=== PATIENT | female | born 1980 | race Caucasian/White ===

== ENCOUNTER 2017-04-08 17:16 | Emergency (ER) | payer BC ==
--- NOTE | 2017-04-08 17:29 | PDOC ---
History of Present Illness - General History Source: Patient Exam Limitations: No Limitations - History of Present Illness Initial Comments: 04/08/17 17:51 The patient is a 36 year old female, with significant past medical history of seizures (on tegretol), who presents today complaining of left lower back pain, left elbow pain, nausea, and diarrhea s/p mechanical fall down 4 or 5 steps in her home around 5pm yesterday, approximately 24 hours ago. The patient explains that when she accidentally tripped, she slid down the steps on her buttocks. She was able to brace her fall by pulling herself back on the hand rails. This led her to hit her back and the left elbow on the stairs behind her. She notes left elbow pain with associated intermittent numbness and tingling. After the fall she stood up and walked to the sofa and states that she immediately felt the urge to defecate. Since the fall, she reports nausea, diffuse abdominal discomfort that is mild, and 4 episodes of diarrhea. The patient is ambulatory. Denies LOC, head trauma. Denies headache, lightheadedness, dizziness. Denies neck pain. Denies fever, chills, vomiting. Allergies: amoxicillin, cephalexin PCP- Dr. Juan J Quigley <Katalina Grace - Last Filed: 04/08/17 17:53> <Candido Paul - Last Filed: 04/08/17 18:53> - General Chief Complaint: Pain Stated Complaint: FELL, BACK PAIN, NAUSEA & DIARRHEA Time Seen by Provider: 04/08/17 17:28 Past History - Past Medical History Seizures: Yes <Katalina Grace - Last Filed: 04/08/17 17:53> <Candido Paul - Last Filed: 04/08/17 18:53> - Past Medical History Allergies/Adverse Reactions: Allergies Allergy/AdvReac Type Severity Reaction Status Date / Time amoxicillin Allergy Intermediate Rash Verified 04/08/17 17:26 cephalexin Allergy Intermediate Rash Verified 04/08/17 17:26 Home Medications: Ambulatory Orders Carbamazepine [Tegretol -] 200 mg PO TID 04/08/17 Review of Systems - Review of Systems Able to Perform ROS?: Yes Comments:: 04/08/17 17:51 CONSTITUTIONAL: No: Chills, Diaphoresis, Fever, Loss of Appetite HEENTM: No: Eye Pain, Blurred Vision, Nose Pain, Nose Bleeding RESPIRATORY: No: Cough, Orthopnea, Shortness of Breath, CARDIAC: No: Chest Pain, Edema, Irregular Heart Rate, Lightheadedness ABD/GI: Yes: diffuse abdominal discomfort, diarrhea,nausea No: Constipated, Vomiting, Indigestion MUSCULOSKELETAL: Yes: left lower back pain, left elbow pain with associated intermittent numbness and tingling. INTEGUMENTARY: No: Bruising, Change in Color, Change in Hair/Nails, Dryness, Erythema, Flushing, Lesions, Lumps, Pallor, Pruritus, Rash, Sweating, Other NEUROLOGICAL: No: Headache, Tremors, Weakness, Unsteady Gait Dizziness <Katalina Grace - Last Filed: 04/08/17 17:53> *Physical Exam - Vital Signs Last Vital Signs Temp Pulse Resp BP Pulse Ox 98.8 F 72 15 110/71 99 04/08/17 17:24 04/08/17 17:24 04/08/17 17:24 04/08/17 17:24 04/08/17 17:24 - Physical Exam Comments: 04/08/17 17:51 GENERAL APPEARANCE: Yes: Appropriately Dressed, Nourished. Happy and interactive. No: Apparent Distress, HEENT: positive: EOMI, CHELO, Normal ENT Inspection, Normal Voice, TMs Normal, Pharynx Normal. NECK: positive: Trachea midline, Normal Thyroid, Supple. negative: Tender, Rigid, Carotid bruit, Decreased range of motion RESPIRATORY/CHEST: positive: Lungs Clear, Normal Breath Sounds. CARDIOVASCULAR: positive: Regular Rate, Regular Rhythm, S1, S2. negative: Edema , JVD Gastrointestinal/Abdominal: positive: Normal Bowel Sounds, Flat, Soft. MUSCULOSKELETAL: positive: Tenderness to the left paravertebral muscles in thoracic and lumbar area. No spinous process tenderness. No Cervical spine tenderness. Full ROM. Neurovascular intact. EXTREMITY: positive: Normal Capillary Refill, Normal Inspection, Normal Range of Motion. INTEGUMENTARY: positive: Normal Color, Dry, Warm. 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 <Katalina Grace - Last Filed: 04/08/17 17:53> ED Treatment Course - LABORATORY CBC & Chemistry Diagram: 04/08/17 17:45 - ADDITIONAL ORDERS Additional order review: 04/08/17 18:52 Pt is doing well, labs normal, UA normal CT pending at this time. Case will be endorsed to Dr. Welsh If CT negative for retroperitoneal hematoma, pt will discharged home Pt is in agreement with plan <Candido Paul - Last Filed: 04/08/17 18:53> *DC/Admit/Observation/Transfer - Attestations Scribe Attestion: 04/08/17 17:51 Documentation prepared by JLUIS Lucio, acting as medical language specialist for Candido Paul MD. <Katalina Grace - Last Filed: 04/08/17 17:53> <Candido Paul - Last Filed: 04/08/17 18:53> Diagnosis at time of Disposition: Back pain Qualifiers: Back pain location: low back pain Chronicity: acute Back pain laterality: left Sciatica presence: without sciatica Qualified Code(s): M54.5 - Low back pain - Discharge Dispostion Condition at time of disposition: Good - Referrals Referrals: Esteban Quigley MD [Primary Care Provider] -
[2017-04-08 17:45] VITALS: BP 110/71; PULSE 72; TEMP 98.8; BMI 21.6
[2017-04-08 17:52] LABS: PH,URINE 5.5 (4.5-8); URINE APPEARANCE Clear; URINE BILIRUBIN Negative (NEGATIVE); URINE BLOOD Negative (NEGATIVE); URINE GLUCOSE (UA) Negative (NEGATIVE); URINE KETONE Negative (NEGATIVE); URINE LEUK ESTERASE Negative (NEGATIVE); URINE NITRITE Negative (NEGATIVE); URINE PROTEIN Negative (NEGATIVE); URINE UROBILINOGEN 0.2 (0.2-1.0)
[2017-04-08 17:53] LABS: URINE COLOR YELLOW
[2017-04-08 18:21] LABS: ALBUMIN 4.3 g/dl (3.5-5.0); ALK PHOS 54 U/L (32-92); ANION GAP 6 (8-16); BILIRUBIN,TOTAL 0.3 mg/dl (0.2-1.0); CALCIUM 8.8 mg/dl (8.4-10.2); CO2 26 mmol/L (22-28); CREATININE 0.7 mg/dl (0.6-1.3); GLUCOSE,RANDOM 113 mg/dl (74-106); SGOT/AST 18 U/L (10-42); SGPT/ALT 14 U/L (10-40); TOT PROT 7.1 g/dl (6.4-8.3)
--- NOTE | 2017-04-08 19:15 | PDOC ---
*Physical Exam - Vital Signs Last Vital Signs Temp Pulse Resp BP Pulse Ox 98.8 F 72 15 110/71 99 04/08/17 17:24 04/08/17 17:24 04/08/17 17:24 04/08/17 17:24 04/08/17 17:24 <SanjayKatalina - Last Filed: 04/08/17 19:36> - Vital Signs Last Vital Signs Temp Pulse Resp BP Pulse Ox 98.8 F 72 15 110/71 99 04/08/17 17:24 04/08/17 17:24 04/08/17 17:24 04/08/17 17:24 04/08/17 17:24 <Marianna Welsh - Last Filed: 04/09/17 06:08> ED Treatment Course - LABORATORY CBC & Chemistry Diagram: 04/08/17 17:45 - ADDITIONAL ORDERS Additional order review: Laboratory Results 04/08/17 04/08/17 17:45 17:40 Sodium 131 L Potassium 3.9 Chloride 99 Carbon Dioxide 26 Anion Gap 6 L BUN 10 Creatinine 0.7 Creat Clearance w eGFR > 60 Random Glucose 113 H Calcium 8.8 Total Bilirubin 0.3 AST 18 ALT 14 Alkaline Phosphatase 54 Total Protein 7.1 Albumin 4.3 Urine Color Yellow Urine Appearance Clear Urine pH 5.5 Ur Specific [place] <= 1.005 Urine Protein Negative Urine Glucose (UA) Negative Urine Ketones Negative Urine Blood Negative Urine Nitrite Negative Urine Bilirubin Negative Urine Urobilinogen 0.2 Ur Leukocyte Esterase Negative Urine HCG, Qual Negative - RADIOLOGY Radiograph Interpretation: 04/08/17 19:36 EXAM#: TYPE/EXAM: RESULT: [id number] CT/ABDOMEN PELVIS CT WITH CONTR HISTORY PROVIDED: Fall TECHNIQUE: Sequential axial images were obtained from the domes of the diaphragm through the symphysis pubis following the administration of intravenous contrast material. The lung bases are clear. The liver, spleen, pancreas, adrenal glands and kidneys demonstrate no significant abnormalities. The gallbladder is clear. There is no evidence of intra-abdominal or retroperitoneal lymphadenopathy or fluid collections. There is no evidence of a retroperitoneal hematoma. There is no evidence of pneumoperitoneum, bowel obstruction or intra-abdominal abscess. There is no CT evidence of acute appendicitis or diverticulitis. Examination of the pelvis demonstrates no evidence of pelvic masses, fluid collections or lymphadenopathy. There is no evidence of acute bony abnormalities. IMPRESSION: Normal CT scan of the abdomen and pelvis with no evidence of retroperitoneal hematoma or acute pathology. Reported By: Carl Arcos MD 04/08/179 <Katalina Grace - Last Filed: 04/08/17 19:36> - LABORATORY CBC & Chemistry Diagram: 04/08/17 17:45 - ADDITIONAL ORDERS Additional order review: Laboratory Results 04/08/17 04/08/17 17:45 17:40 Sodium 131 L Potassium 3.9 Chloride 99 Carbon Dioxide 26 Anion Gap 6 L BUN 10 Creatinine 0.7 Creat Clearance w eGFR > 60 Random Glucose 113 H Calcium 8.8 Total Bilirubin 0.3 AST 18 ALT 14 Alkaline Phosphatase 54 Total Protein 7.1 Albumin 4.3 Urine Color Yellow Urine Appearance Clear Urine pH 5.5 Ur Specific [place] <= 1.005 Urine Protein Negative Urine Glucose (UA) Negative Urine Ketones Negative Urine Blood Negative Urine Nitrite Negative Urine Bilirubin Negative Urine Urobilinogen 0.2 Ur Leukocyte Esterase Negative Urine HCG, Qual Negative <Marianna Welsh - Last Filed: 04/09/17 06:08> Progress Note - Progress Note Progress Note: Care of this patient received from Dr. Paul. Abdominal/pelvic CT performed to rule out retroperitoneal hematoma or other evidence of injury, is negative for abnormality. Results discussed with the patient. It is unlikely that her nausea and diarrhea are directly related to her fall. Since she is no longer nauseated, she can begin clear liquids at home and advance her diet cautiously. She can also treat her diarrhea with over-the- counter medications such as Imodium/Pepto-Bismol. If she has persistent vomiting, however she should return to the emergency room She should follow-up with her general doctor within the next several days. <Marianna Welsh - Last Filed: 04/09/17 06:08> *DC/Admit/Observation/Transfer <Katalina Grace - Last Filed: 04/08/17 19:36> <Marianna Welsh - Last Filed: 04/09/17 06:08> Diagnosis at time of Disposition: Gastroenteritis Back pain Qualifiers: Back pain location: low back pain Chronicity: acute Back pain laterality: left Sciatica presence: without sciatica Qualified Code(s): M54.5 - Low back pain - Discharge Dispostion Disposition: HOME Condition at time of disposition: Stable - Referrals Referrals: Esteban Qiugley MD [Primary Care Provider] - - Patient Instructions Printed Discharge Instructions: Diarrhea Additional Instructions: Clear liquids, advance diet cautiously Can use Pepto-Bismol/Imodium as needed for persistent loose stools Ibuprofen/naproxen/acetaminophen as needed for pain Follow-up with your general doctor within the next 5 days Return to ER if you develop vomiting/fever or abdominal pain - Post Discharge Activity
== END 2017-04-08 19:51 | disposition home or self-care (01) ==
LOC: FER 17:16
DX: M54.5 Low back pain (principal); G40.909 Epilepsy, unspecified, not intractable, without status epilepticus; W10.9XXA Fall (on) (from) unspecified stairs and steps, initial encounter; Y93.89 Activity, other specified; Y92.9 Unspecified place or not applicable
CPT/HCPCS: 36415; 74177-TC; 80053; 81003; 84703; 99284-25

== ENCOUNTER 2021-09-15 15:27 | Emergency (ER) | payer BC, OTHER ==
[2021-09-15] MEDS ORDERED: ACETAMINOPHEN 1000 MG/100 ML BAG IVPB ONE (16:06)
[2021-09-15 16:09] VITALS: BMI 22.1
[2021-09-15] MEDS ORDERED: ACETAMINOPHEN INJECTION 100 ML IVPB ONE (16:13)
[2021-09-15 16:54] LABS: ALBUMIN 4.1 g/dl (3.4-5.0); BILIRUBIN,TOTAL 0.5 mg/dl (0.2-1); CALCIUM 8.8 mg/dl (8.5-10); CREATININE 0.5 mg/dl (0.55-1.3)
[2021-09-15 17:05] LABS: BASO % 0.5 % (0-2.0); EOS % 1.8 % (0-4.5); HEMATOCRIT 38.1 % (32.4-45.2); HEMOGLOBIN 12.3 GM/dL (10.7-15.3); MCH 28.7 pg (25.7-33.7); MCHC 32.3 g/dl (32.0-36.0); MEAN PLT VOLUME 8.5 fl (7.5-11.1); MONO % 5.9 % (3.8-10.2); NEUT % 63.8 % (42.8-82.8); PLATELET COUNT 229 10^3/uL (134-434); RBC 4.28 M/mm3 (3.60-5.2); RDW 13.1 % (11.6-15.6); WHITE BLOOD COUNT 7.1 K/mm3 (4.0-10.0)
[2021-09-15] MEDS ORDERED: ALBUTEROL SO4 HFA INHALER IH ONE (18:23)
[2021-09-15 21:13] VITALS: BP 110/67; PULSE 81; TEMP 98.5
== END 2021-09-15 21:18 | disposition home or self-care (01) ==
LOC: FER 15:27
PROC: 3E0333Z Introduction of Anti-inflammatory into Peripheral Vein, Percutaneous Approach (ICD-10-PCS; principal; 2021-09-15)
DX: N83.209 Unspecified ovarian cyst, unspecified side (principal); K59.00 Constipation, unspecified
CPT/HCPCS: 36415; 74177-TC; 76830-TC; 80053; 81003; 84703; 85025; 87086; 87491; 87591; 99285-25; J0131; Q9967